=== PATIENT | male | born 1950 | race Caucasian/White ===

== ENCOUNTER 2018-11-06 07:52 | Day surgery (SDC) | payer MEDICARE ==
[~2018-11-06] VITALS: Ht 185.4 cm; Wt 101.2 kg
[~2018-11-06 07:52] MED LIST: Aspir 8181 MG PO; Aspirin EC81 MG PO; HYDACE10B PO; IBUP800; IBUP800 PO; Ibuprofen Ib200 MG PO; OMEP20ER PO; WARF4 PO
--- NOTE | 2018-11-06 08:43 | NUR ---
11/06/18 0843 Sandrine Pizarro 1ST IV ATTEMPT IN RT HAND BLEW, SECOND IV ATTEMPT IN RT FOREARM WAS SUCC.
--- NOTE | 2018-11-06 10:19 | NUR ---
11/06/18 1019 Barry Amin INJECTED 10 CC SALINE INTO BX PORT FOR POLYPECTOMY PER DR SHAW
== END 2018-11-06 10:45 | disposition home or self-care (01) ==
LOC: ORSCSDS 07:52
PROVIDERS: Internal Medicine Gastroenterology
PROC: 0DBP8ZX Excision of Rectum, Via Natural or Artificial Opening Endoscopic, Diagnostic (ICD-10-PCS; principal; 2018-11-06 09:15)
PROC: 0DBL8ZX Excision of Transverse Colon, Via Natural or Artificial Opening Endoscopic, Diagnostic (ICD-10-PCS; principal; 2018-11-06 09:15)
DX: Z12.11 Encounter for screening for malignant neoplasm of colon (principal); D12.3 Benign neoplasm of transverse colon; K62.1 Rectal polyp; K57.30 Diverticulosis of large intestine without perforation or abscess without bleeding; K64.8 Other hemorrhoids; Z86.010 Personal history of colon polyps; E78.5 Hyperlipidemia, unspecified; Z79.82 Long term (current) use of aspirin
CPT/HCPCS: 88305; J0330; J1980; J2405; J7120

== ENCOUNTER 2023-12-23 11:37 | Day surgery (SDC) | payer MEDICARE ==
[~2023-12-23] VITALS: Ht 185.4 cm; Wt 95.5 kg
[~2023-12-23 11:37] MED LIST changes: +Lactated Ringer's 1,000 ML IV ONE; +propofoL 50 ML IV ONE
[2023-12-23] MEDS ORDERED: Lactated Ringer's 1,000 ML IV ONE (12:22)
[2023-12-23 15:44] VITALS: BP 104/80
== END 2023-12-23 13:35 | disposition home or self-care (01) ==
LOC: ORSCSDS 11:37
PROVIDERS: Internal Medicine Gastroenterology
PROC: 0DBK8ZX Excision of Ascending Colon, Via Natural or Artificial Opening Endoscopic, Diagnostic (ICD-10-PCS; principal; 2023-12-23 13:30)
DX: Z12.11 Encounter for screening for malignant neoplasm of colon (principal); Z86.010 Personal history of colon polyps; D12.2 Benign neoplasm of ascending colon; E78.5 Hyperlipidemia, unspecified; K57.30 Diverticulosis of large intestine without perforation or abscess without bleeding
CPT/HCPCS: 88305; J2704; J7120